=== PATIENT | male | born 1950 | race Caucasian/White ===

== ENCOUNTER 2022-05-24 18:59 | Emergency (ER) | payer MEDICARE ==
[2022-05-24] MEDS ORDERED: Diazepam 10 MG/2 ML SYRINGE ONE (19:17)
[2022-05-24] MEDS ORDERED: Ketorolac Tromethamine 30 MG/ML VIAL ONE (19:45)
[2022-05-24] MEDS ORDERED: Morphine 4 MG/ML VIAL ONE (22:02)
== END 2022-05-24 22:15 | disposition home or self-care (01) ==
LOC: NAV ERS 18:59
DX: S22.31XA Fracture of one rib, right side, initial encounter for closed fracture (principal); K21.9 Gastro-esophageal reflux disease without esophagitis; E78.00 Pure hypercholesterolemia, unspecified; I10 Essential (primary) hypertension; W19.XXXA Unspecified fall, initial encounter
CPT/HCPCS: 94760; 96374; 96375; J1885; J2270; J3360